=== PATIENT | female | born 1980 ===

== ENCOUNTER 2018-10-30 11:51 | Observation (INO) ==
--- NOTE | 2018-10-21 16:04 | PAT Medication Instructions ---
Medication Instructions Date of Service October 21, 2018 Home Medications loratadine-pseudoephedrine [Claritin-D 24 Hour] 1 tab PO HS Take evening before surgery loratadine-pseudoephedrine [Claritin-D 24 Hour] 1 tab PO HS Other Notes If you have any questions please call us at [phone] or [phone] or [phone] or [phone]
--- NOTE | 2018-10-22 13:36 | Anesthesiology Consultation ---
Date of Service October 22, 2018 Assessment & Plan (1) Encounter for pre-operative examination: - Check test AM DOS Chart Review Chart Review: Acceptable Risk for Surgery and Patient seen in Pre Admission Test ing Teaching & Discussion Pre-Anesthesia Teaching/Discussion Notes: Instructed NPO after midnight before surgery,except medications with 15 cc of water. Medication instructions provided according to the PAT guidelines. History Surgery Operation Date: 10/30/18 13:20 Proposed Procedures p Robotic Total Laparoscopic Hysterectomy - Fidel Ferrera MD Height/Weight Height: 5 ft 7 in Weight: 72.575 kg Allergies Allergy/AdvReac Type Severity Reaction Status Date / Time No Known Allergies Allergy Verified 10/21/18 13:02 Medications Home Medications Medication Instructions Recorded Confirmed Last Taken loratadine-pseudoephedrine 1 tab PO HS 10/21/18 10/21/18 Unknown [Claritin-D 24 Hour] Past Medical History Medical History Seasonal allergies Uterine fibroid Exercise / Class Metabolic Activity II 4-5 Yardwork/Stairs/Walk up hill Past Surgical History Surgical History History of bilateral tubal ligation X 2 History of dilatation and curettage History of tooth extraction Past Anesthesia History No Hx of Anesthesia Complications and No Family Hx of Anesthesia Complications History of PONV No Hx of PONV and No Hx of Motion Sickness Social History Smoking Status: Current every day smoker tobacco type: cigarettes Smoking cigarettes per day: 10 CIGARETTES DAILY X20+ YEARS Do You Dip or Chew Tobacco: No Hx Alcohol Use: Yes Alcohol type: beer alcohol intake frequency: a few times a month Hx Substance Use: No substance use type: does not use Review of Systems Patient denies chest pain, shortness of breath, dyspnea on exertion, reflux, cough, wheezing, palpitations. Physical Exam Vital Signs VITALS BP 115/80 P 69 TEMP 97.9 SP02 96%RA RESP 16 PHYSICAL Full neck and c-spine range of motion. Full TMJ range of motion. TMD 3 finger breaths Mallampati Score 2 Dentition: intact Lungs: clear throughout to auscultation Cardiac: regular rate and rhythm, no murmurs noted Spine: normal Carotid arteries: negative bruit Extremities: no edema Testing Laboratory Results Blood Type A Positive 10/22/18 13:53 Antibody Screen NEGATIVE 10/22/18 13:53 09/24/18 WBC 8.83 H/H 13.2/37.3 PLATELETS 344
--- NOTE | 2018-10-30 09:52 | History & Physical Bridge Note ---
Date of Service October 30, 2018 History & Physical Bridge Note I have examined the patient, reviewed the History & Physical and in the interval since the performance of the History & Physical I have noted the following changes of clinical significance: no changes noted
[~2018-10-30 11:51] MED LIST: CEFAZOLIN 2000MG 2,000 MG/15 ML SYR IV SCH; LIDOCAINE HCL 2% 2 ML VIAL/AMP(20MG/ML) INFIL ONE; LR 15ML/HR IV SCH; MIDAZOLAM HCL 1 MG/ML 2ML VIAL ONE; ONDANSETRON INJ 2 MG/ML 2 ML VIAL ONE; PROPOFOL IV EMULSION 10 MG/ML 20 ML VIAL IV ONE; ROCURONIUM BROMIDE 10 MG/ML 5 ML VIAL ONE; fentaNYL citrate 100 MCG/2 ML VIAL ONE
[2018-10-30] MEDS ORDERED: PHENAZOPYRIDINE HCL 200 MG TAB ONE (12:18)
[2018-10-30 12:30] LABS: Basophils # (auto) 0.03 K/uL (0-0.2); Basophils % (auto) 0.4 %; Eosinophils # (auto) 0.17 K/uL (0-0.5); Eosinophils % (auto) 2.2 %; Hematocrit (blood only) 41.6 % (37-47); Hemoglobin 14.4 g/dL (12.0-16.0); Lymphocytes # (auto) 2.48 K/uL (1.2-3.4); Lymphocytes % (auto) 32.3 %; Mean Corpuscular Volume 96.7 fL (80-100); Mean Platelet Volume 9.8 fL (7.4-10.4); Monocytes # (auto) 0.48 K/uL (0.11-0.59); Monocytes % (auto) 6.3 %; Neutrophils # (auto) 4.52 K/uL (1.4-6.5); Neutrophils % (auto) 58.8 %; Platelet Count 342 K/uL (130-400); RDW Coefficient of Variation 12.3 % (11.5-14.5); RDW Standard Deviation 43.5 fL (36.4-46.3); White Blood Count 7.68 K/uL (4.8-10.8)
[2018-10-30 12:34] LABS: Mean Corpuscular Hgb Conc 34.6 g/dL (32-36)
[2018-10-30] MEDS ORDERED: PHENAZOPYRIDINE HCL 100 MG TAB ONE (12:34)
[2018-10-30] MEDS ORDERED: BUPIVACAINE 0.5 % 5 MG/1 ML MPF 30ML VIAL ONE (12:42)
[2018-10-30] MEDS ORDERED: ATROPINE SULFATE 0.1 MG/ML 10ML SYR IV PRN (12:55)
[2018-10-30] MEDS ORDERED: ePHEDrine sulfate 50 MG/ML AMP IV PRN (12:55)
[2018-10-30] MEDS ORDERED: KETOROLAC 30 MG/ML VIAL ONE (13:33)
[2018-10-30] MEDS ORDERED: GLYCOPYRROLATE 0.2 MG/ML VIAL ONE (13:33)
[2018-10-30] MEDS ORDERED: DEXAMETHASONE SOD INJ 4 MG/ML VIAL ONE (13:33)
[2018-10-30] MEDS ORDERED: NEOSTIGMINE METHYLSULFATE 5 MG/5 ML SYR ONE (13:33)
[2018-10-30] MEDS ORDERED: fentaNYL citrate 100 MCG/2 ML VIAL ONE (13:33)
[2018-10-30] MEDS ORDERED: TISSEEL FIBRIN SEALANT 4ML TOP ONE (14:01)
[2018-10-30] MEDS ORDERED: ONDANSETRON INJ 2 MG/ML 2 ML VIAL ONE (14:45)
[2018-10-30] MEDS ORDERED: ACETAMINOPHEN 325 MG TAB PO PRN (14:55)
[2018-10-30] MEDS ORDERED: PROMETHAZINE HCL 12.5 MG in SODIUM CHLORIDE 0.9% 50 ML IV PRN (14:55)
[2018-10-30] MEDS ORDERED: ONDANSETRON INJ 2 MG/ML 2 ML VIAL IV PRN (14:55)
[2018-10-30] MEDS ORDERED: SIMETHICONE 80 MG CHEW PO PRN (14:55)
[2018-10-30] MEDS ORDERED: OXYCODONE/ACETAMINOPHEN 5mg/325mg TAB PO PRN (14:55)
[2018-10-30] MEDS ORDERED: KETOROLAC 30 MG/ML VIAL IV PRN (14:55)
[2018-10-30] MEDS ORDERED: IBUPROFEN 600 MG TAB PO PRN (14:55)
--- NOTE | 2018-10-30 14:55 | Post Operative Brief Note ---
Immediate Post Op Note v1 Date of Surgery October 30, 2018 Pre & Post Diagnosis Operation Date: 10/30/18 13:10 Pre-Op Diagnosis: Dysfunctional Uterine Bleeding, Pelvic Pain Post-Op Diagnosis: Dysfunctional Uterine Bleeding, Pelvic Pain Procedure Operation Date: 10/30/18 13:10 Actual Procedures p Robotic Total Laparoscopic Hysterectomy, Cystoscopy(Not Applicable) - Fidel Ferrera MD EBL: 15 Complications: None UOP: 200mL Surgeon Fidel Ferrera MD Payroll And Benefits Analyst None Estimated Blood Loss 15 Findings Consistent with Post-Op Diagnosis Drains Leary Catheter (removed at end of procedure)
[2018-10-30] MEDS: HYDROmorphone INJ 1 MG/ML SYRINGE IV PRN ×8 (15:09→15:45)
--- NOTE | 2018-10-30 16:08 | Anesthesiology Progress Note ---
Date of Service October 30, 2018 Anesthesia Post Procedure Vital Signs Vital Signs: Temp Pulse Pulse Resp BP Pulse Ox 10/30/18 15:45 36.8 C 52 L 16 139/90 100 10/30/18 15:35 36.3 C L 48 L 22 149/89 H 100 10/30/18 15:25 36.3 C L 53 L 13 154/73 H 100 10/30/18 15:15 36.3 C L 54 L 19 131/89 100 10/30/18 15:07 36.3 C L 55 L 15 137/85 99 10/30/18 12:14 36.7 C 58 L 16 129/88 99 Pain Intensity Anterior Abdomen: Pain Intensity: 6 Transfer of Care Handoff Completed per policy Notes Mental Status: alert / awake / arousable and participated in evaluation Patient Amnestic to Procedure: Yes Nausea / Vomiting: adequately controlled Pain: adequately controlled Airway Patency, RR, SpO2: stable & adequate BP & HR: stable & adequate Hydration State: stable & adequate Anesthetic Complications: no major complications apparent and Pt Satisfied with anesthetic care
[2018-10-30] MEDS: OXYCODONE/ACETAMINOPHEN 5mg/325mg TAB PO PRN ×2 (16:43→20:24)
[2018-10-30] MEDS ORDERED: OXYCODONE HCL IR 5 MG TAB (IMMEDIATE RELEASE) PO PRN (17:18)
--- NOTE | 2018-10-30 17:43 | Operative Report ---
DATE OF OPERATION: 10/30/2018 PROCEDURE: Robotic assisted total laparoscopic hysterectomy and cystoscopy. PREOPERATIVE DIAGNOSES: 1. Dysfunctional uterine bleeding. 2. Chronic pelvic pain. POSTOPERATIVE DIAGNOSES: 1. Dysfunctional uterine bleeding. 2. Chronic pelvic pain. 3. Endometriosis. 4. Adhesive disease. SURGEON: Dr. Fidel Ferrera. ESTIMATED BLOOD LOSS: 15 mL. DRAINS: Leary. FLUIDS: Continuous lactated ringer. URINE OUTPUT: 200 mL via Leary. COMPLICATIONS: None. FINDINGS: There was noted to be an approximately 10-week size uterus. There are tissue adhesions in the lower uterine segment distorting and in the left broad ligament. The uterus did have the appearance of adenomyosis. The bilateral fallopian tubes were noted to be absent from prior tubal ligation. DESCRIPTION OF PROCEDURE: The patient was taken to the Operating Room after consents were ensured. Upon presentation, she was properly identified. General endotracheal anesthesia was obtained without difficulty. The patient was then placed in dorsal lithotomy position and was prepped and draped in the normal sterile fashion. A preprocedural timeout was performed. A BearTail uterine manipulator was placed per therapist phys's specifications. The laparoscopic portion of the case was initiated. A 12 mm incision was made on the superior aspect of the umbilicus. A Veress needle was inserted through the incision. The abdomen was insufflated to 15 mmHg. There was noted to be symmetrical abdominal rise and tympany over the liver with an opening pressure of approximately 4 mmHg, which was consistent with appropriate intraabdominal insufflation. A 12 mm optically guided trocar was then introduced through the umbilical incision. On median inspection, it was noted to have atraumatic entry. The patient was then placed in deep Trendelenburg position. The 8 mm ports were placed in the right and left lower quadrants as well as the left upper quadrant. The robot was then docked. The robotic portion of the procedure was initiated. The left round ligament was identified, cauterized, serially dissected. This was carried, opening the retroperitoneal space. The left uteroovarian ligament was identified, serially cauterized, dissected and continued to the level of the left round ligament. The bladder flap was then created anteriorly, continued from the left to right side stopping about midway through the uterus. Attention was then turned to right side of the uterus. The right round ligament was identified, serially cauterized and dissected opening the retroperitoneal space. There were some adhesions of the IP ligament and right ovary to the posterior uterus, which were dissected restoring normal anatomy. The uteroovarian ligament was then identified, serially cauterized and dissected freeing the ovary. The bladder flap was then continued anteriorly connecting with the prior started bladder flap. The VCare uterine manipulator was identified and the bladder was dissected off of the lower uterine segment and cervix and was noted to be very distal to the lower uterine segment. The right broad ligament was then identified and was dissected down to the level of the uterine vessels. The uterine vessels bilaterally were isolated. The right and left uterine vessels were then serially cauterized and dissected. The colpotomy was then started anteriorly continuing circumferentially around the cervix in a clockwise fashion freeing the cervix from the vagina. The cervix and uterus were then delivered through the vaginal cuff without difficulty. The vaginal cuff was then reapproximated with V-Loc suture in a continuous running stitch. The robot was then undocked. Attention was then turned to the cystoscopy and there was noted to be bilateral ureteral efflux and intact bladder on cystoscopy. A 4 mL of Tisseel was then placed over the raw edges of the pedicles and vaginal cuff. The abdomen was then desufflated and trocars removed. The fascia of the umbilical incision was reapproximated with 0 Vicryl in a single interrupted stitch. The skin at all incisions reapproximated with 4-0 Vicryl with interrupted stitch. Dermabond was placed on top. A 12 mL of lidocaine was distributed throughout the 4 incisions. Needle, sponge and instrument counts were correct at the completion of the case. The patient was awakened from anesthesia and taken to Recovery Room in excellent condition. I attest to the content of the Intraoperative Record and any orders documented therein. Any exception s are noted below.
--- NOTE | 2018-10-30 20:29 | Discharge Summary ---
PROCEDURES WHITE ADMITTED: Total laparoscopic hysterectomy and cystoscopy. SURGEON: Fidel Ferrera MD ADMITTING ATTENDING: Fidel Ferrera MD DISCHARGING ATTENDING: Fidel Ferrera MD HOSPITAL COURSE: The patient was admitted for the above-noted procedure. The procedure was performed without complication. EBL from the procedure was approximately 15 mL. The patient remained in house recovery and was discharged home after achieving all postoperative goals. Detailed postoperative instructions were provided to the patient in both verbal and written form. The patient will be scheduled for followup visit in approximately 2 weeks' time. The patient was encouraged to call with any complications or concerns and follow up as needed. The patient was discharged in stable condition.
[2018-10-30] MEDS ORDERED: DOCUSATE SODIUM 100 MG CAP PO SCH (21:00)
== END 2018-10-30 20:30 | disposition home or self-care (01) ==
LOC: ASU 11:51 → 4N 11:51